=== PATIENT | male | born 1965 | race Caucasian/White ===

== ENCOUNTER 2016-06-24 10:10 | Emergency (ER) | payer BC ==
[~2016-06-24] VITALS: Ht 180.3 cm; Wt 86.2 kg
--- NOTE | 2016-06-24 10:28 | NUR ---
Pt evaluated by MD in room 4A for cough. A/O x 4, nad noted, no sob, vss, ambulates w/ steady gait. Patient discharged home in stable conditon. Written and verbal after care instructions given. Patient verbalizes understanding of instructions.
[2016-06-24 10:29] VITALS: BP 117/90
== END 2016-06-24 10:30 | disposition home or self-care (01) ==
LOC: ER 10:10
DX: J40 Bronchitis, not specified as acute or chronic (principal)
CPT/HCPCS: A4663